=== PATIENT | female | born 1985 ===

== ENCOUNTER 2018-04-15 19:27 | Inpatient (IN) | payer BC ==
[2018-04-15] MEDS ORDERED: Sodium Chloride 0.9% 1,000 ML IV STA (21:11)
[2018-04-15] MEDS ORDERED: Sodium Chloride 0.9% 1,000 ML ONE (21:20)
[2018-04-15 21:24] LABS: BASO % 0.3 % (0.0-2.0); HEMOGLOBIN 12.6 g/dL (11.0-16.0); LYMPH # 0.8 K/uL (1.0-4.3); MEAN CELL VOLUME 86.1 fL (81.0-99.0); MEAN CORPUSCULAR HEMOGLOBIN 29.9 pg (27.0-31.0); MEAN CORPUSCULAR HGB CONC 34.7 g/dL (33.0-37.0); MEAN PLATELET VOLUME 8.8 fL (7.2-11.7); MONO # 0.8 K/uL (0.0-0.8); MONO % 8.6 % (0.0-10.0); NEUT # 7.2 K/uL (1.8-7.0); RBC 4.2 Mil/uL (3.80-5.20); RED CELL DISTRIBUTION WIDTH 13.3 % (11.5-14.5); WHITE BLOOD COUNT 8.8 K/uL (4.8-10.8)
[2018-04-15 21:30] LABS: NEUT % 81.1 % (50.0-75.0)
[2018-04-15 21:36] LABS: ALB/GLOB RATIO 1.4 (1.0-2.1); ALT/SGPT 45 U/L (9-52); AST/SGOT 37 U/L (14-36); BLOOD UREA NITROGEN 8 mg/dL (7-17); CALCIUM 8.4 mg/dl (8.6-10.4); GFR NON-AFRICAN AMERICAN > 60
[2018-04-15 22:12] LABS: SQUAMOUS EPITHIAL 3 /hpf (0-5); URINE BACTERIA FEW (<OCC); URINE BILIRUBIN NEGATIVE (NEGATIVE); URINE BLOOD 3+ (NEGATIVE); URINE CLARITY Hazy (Clear); URINE COLOR Yellow (YELLOW); URINE GLUCOSE (UA) NORMAL (Normal); URINE LEUKOCYTE ESTERASE TRACE Leu/uL (Negative); URINE PROTEIN 1+ mg/dL (NEGATIVE)
--- NOTE | 2018-04-15 22:28 | C.PDOC ---
History Of Present Illness 33 year old female presents to the ED c/o 4 day history of high grade fever, cough and body aches. Patient states she took one 200 mg Advil tablet at home without relief to her symptoms. Patient denies rash, headache, CP, SOB, nausea, vomit, diarrhea, recent travel, sick contacts. Time Seen by Provider: 04/15/18 19:39 Chief Complaint (Nursing): Flu-like Symptoms History Per: Patient History/Exam Limitations: no limitations Onset/Duration Of Symptoms: Days (4) Current Symptoms Are (Timing): Still Present Location Of Pain: Sinus/es, Diffuse Myalgias Associated Symptoms: Fever, Cough, Myalgias Ear Symptoms: Bilateral: None Recent travel outside of the [place]: No Additional History Per: Patient Past Medical History Reviewed: Historical Data, Nursing Documentation, Vital Signs Vital Signs: Last Vital Signs Temp 103 F H 04/15/18 21:01 Pulse 136 H 04/15/18 21:01 Resp 17 04/15/18 21:01 BP 134/82 04/15/18 21:01 Pulse Ox 96 04/15/18 21:01 - Medical History PMH: No Chronic Diseases Surgical History: Cholecystectomy Family History: States: Unknown Family Hx - Social History Hx Alcohol Use: No Hx Substance Use: No Review Of Systems Constitutional: Positive for: Fever, Malaise. Negative for: Chills ENT: Negative for: Nose Discharge, Nose Congestion Cardiovascular: Negative for: Chest Pain Respiratory: Positive for: Cough. Negative for: Shortness of Breath Gastrointestinal: Negative for: Nausea, Vomiting, Abdominal Pain Skin: Negative for: Rash Neurological: Negative for: Weakness, Numbness, Headache Physical Exam - Physical Exam Appears: Non-toxic, No Acute Distress, Other (febrile) Skin: Normal Color, Warm, Dry Head: Atraumatic, Normacephalic Eye(s): bilateral: Normal Inspection Neck: Normal ROM, Supple Chest: Symmetrical Cardiovascular: Rhythm Regular (tachycardic) Respiratory: Normal Breath Sounds, No Rales, No Rhonchi, No Wheezing Gastrointestinal/Abdominal: Soft, No Tenderness, No Guarding, No Rebound Extremity: Normal ROM, No Tenderness, No Swelling Neurological/Psych: Oriented x3, Normal Speech, Normal Cognition Gait: Steady ED Course And Treatment - Laboratory Results Result Diagrams: 04/15/18 21:21 04/15/18 21:21 Lab Results: Total Bilirubin 0.6 mg/dL (0.2-1.3) 04/15/18 21:21 AST 37 U/L (14-36) H 04/15/18 21:21 ALT 45 U/L (9-52) 04/15/18 21:21 Alkaline Phosphatase 62 U/L (38-126) 04/15/18 21:21 Total Protein 7.0 g/dL (6.3-8.3) 04/15/18 21:21 Albumin 4.0 g/dL (3.5-5.0) 04/15/18 21:21 Globulin 3.0 gm/dL (2.2-3.9) 04/15/18 21:21 Albumin/Globulin Ratio 1.4 (1.0-2.1) 04/15/18 21:21 Urine Color Yellow (YELLOW) 04/15/18 22:01 Urine Clarity Hazy (Clear) 04/15/18 22:01 Urine pH 7.0 (5.0-8.0) 04/15/18 22:01 Ur Specific [place] 1.010 (1.003-1.030) 04/15/18 22:01 Urine Protein 1+ mg/dL (NEGATIVE) H 04/15/18 22:01 Urine Glucose (UA) Normal mg/dL (Normal) 04/15/18 22:01 Urine Ketones 1+ mg/dL (NEGATIVE) H 04/15/18 22:01 Urine Blood 3+ (NEGATIVE) H 04/15/18 22:01 Urine Nitrate Negative (NEGATIVE) 04/15/18 22:01 Urine Bilirubin Negative (NEGATIVE) 04/15/18 22:01 Urine Urobilinogen 4.0 mg/dL (0.2-1.0) H 04/15/18 22:01 Ur Leukocyte Esterase Trace Nick/uL (Negative) 04/15/18 22:01 Urine WBC (Auto) 19 /hpf (0-5) H 04/15/18 22:01 Urine RBC (Auto) 112 /hpf (0-3) H 04/15/18 22:01 Ur Squamous Epith Cells 3 /hpf (0-5) 04/15/18 22:01 Urine Bacteria Few (<OCC) H 04/15/18 22:01 O2 Sat by Pulse Oximetry: 96 (ON RA) Pulse Ox Interpretation: Normal - Radiology CXR: Interpreted by Me, Viewed By Me CXR Interpretation: Yes: Infiltrates (questionable early infiltrate right lower lobe) Progress Note: Plan: - CXR. - Labs. - Motrin 600 mg PO. - IV fluids. - Tylenol 650 mg PO. - Blood culture. - Infleunza A B. - UA. Upon arrival patient was noted to be febrile and tachycardic, Tylenol was given. On re- evalution patient still remained febrile and tachycardic. Motrin and IV fluids were ordered. CXR showed possible early infiltrate antibiotics will be given to cover for pneumonia. After 2 L of Fluid, Tylenol and Ibuprofen patient still febrile. Rocephin and Zithromax ordered. Case was d/w who accepted patient to his service for observation and IV antibiotics. Disposition - Disposition Disposition: HOSPITALIZED Disposition Time: :31 Condition: STABLE - Clinical Impression Clinical Impression: Pneumonia - PA / REPAIR WELDER / Resident Statement MD/DO has reviewed & agrees with the documentation as recorded. - Scribe Statement The provider has reviewed the documentation as recorded by the Scribe Martin Sainz All medical record entries made by the Scribe were at my direction and persona lly dictated by me. I have reviewed the chart and agree that the record accurately reflects my personal performance of the history, physical exam, medical decision making, and the department course for this patient. I have also personally directed, reviewed, and agree with the discharge instructions and disposition. Decision To Admit - Pt Status Changed To: Hospital Disposition Of: Observation - . Bed Request Type: Regular Admitting Physician: Elizabeth Cannon Patient Diagnosis: Pneumonia
[2018-04-15 22:54] LABS: VENOUS BLOOD GAS BASE EXCESS -1.6 mmol/L (0.0-2.0); VENOUS BLOOD GAS PCO2 32 mmHg (40-60); VENOUS BLOOD GAS PO2 40 mm/Hg (30-55); VENOUS BLOOD PH 7.44 (7.32-7.43)
[2018-04-15] MEDS ORDERED: Sodium Chloride 0.9% 1,000 ML IV ONE (22:54)
[2018-04-15] MEDS ORDERED: Azithromycin 500mg/250ML NS 500 MG/250 ML BAG IV ONE (23:00)
[2018-04-15] MEDS ORDERED: Azithromycin 500mg/250ML NS 500 MG/250 ML BAG IVPB ONE (23:11)
[2018-04-16] MEDS: Azithromycin 500 MG in Sodium Chloride 0.9% 250 ML IVPB SCH (01:01)
[2018-04-16] MEDS: Dextrose 5%/0.45% NS 1,000 ML IV SCH ×3 (01:01→21:21)
[2018-04-16] MEDS: Albuterol-Ipratrop 3 mg / 0.5 (3 ml) UD INH SCH ×5 (07:45→23:57)
[2018-04-16] MEDS: cefTRIAXone IV 1 gm in Dextros 1 GM in Dextrose 5% In Water 50 ML IVPB SCH (10:03)
[2018-04-16] MEDS: Enoxaparin 40 mg Syringe SC SCH (10:03)
--- NOTE | 2018-04-16 12:09 | RAD ---
Date of service: 04/15/2018 HISTORY: cough COMPARISON: No prior. TECHNIQUE: Chest PA and lateral FINDINGS: LUNGS: No active pulmonary disease. PLEURA: No significant pleural effusion identified. No pneumothorax apparent. CARDIOVASCULAR: No aortic atherosclerotic calcification present. Normal cardiac size. No pulmonary vascular congestion. OSSEOUS STRUCTURES: No significant abnormalities. VISUALIZED UPPER ABDOMEN: Surgical clips right upper quadrant abdomen. OTHER FINDINGS: None. IMPRESSION: No acute cardiopulmonary disease appreciated.
[2018-04-16] MEDS: Oxycodone/Acetaminophen 5/325 mg Tab PO PRN (19:14)
--- NOTE | 2018-04-16 21:03 | CP.PCM.PCO ---
Physician Communication Note - Physician Communication Note Physician Communication Note: For Dr. Cannon
[2018-04-17] MEDS: Dextrose 5%/0.45% NS 1,000 ML IV SCH ×2 (00:07→06:44)
[2018-04-17] MEDS: Azithromycin 500 MG in Sodium Chloride 0.9% 250 ML IVPB SCH (01:23)
[2018-04-17 07:34] LABS: BASO % 0.3 % (0.0-2.0); EOS % 0.1 % (0.0-4.0); LYMPH # 1.3 K/uL (1.0-4.3); LYMPH % 16.9 % (20.0-40.0); MEAN CELL VOLUME 85.7 fL (81.0-99.0); MEAN CORPUSCULAR HEMOGLOBIN 30.7 pg (27.0-31.0); MEAN CORPUSCULAR HGB CONC 35.8 g/dL (33.0-37.0); MONO # 1.2 K/uL (0.0-0.8); MONO % 14.8 % (0.0-10.0); NEUT # 5.3 K/uL (1.8-7.0); NEUT % 67.9 % (50.0-75.0); RBC 3.57 Mil/uL (3.80-5.20); RED CELL DISTRIBUTION WIDTH 13.4 % (11.5-14.5); WHITE BLOOD COUNT 7.8 K/uL (4.8-10.8)
[2018-04-17 07:55] LABS: ALB/GLOB RATIO 1.2 (1.0-2.1); ALBUMIN 3.3 g/dL (3.5-5.0); ALT/SGPT 59 U/L (9-52); AST/SGOT 44 U/L (14-36); BLOOD UREA NITROGEN 3 mg/dL (7-17); CALCIUM 8.3 mg/dl (8.6-10.4); GFR NON-AFRICAN AMERICAN > 60
[2018-04-17] MEDS: Albuterol-Ipratrop 3 mg / 0.5 (3 ml) UD INH SCH ×4 (07:55→20:17)
[2018-04-17] MEDS ORDERED: Pneumococcal 23-Valent Vaccine IM ONE (10:00)
[2018-04-17] MEDS ORDERED: Influenza Vaccine 60 mcg/0.5 mL SYR (4YR UP) IM ONE (10:00)
[2018-04-17] MEDS: Enoxaparin 40 mg Syringe SC SCH (10:03)
[2018-04-17] MEDS: cefTRIAXone IV 1 gm in Dextros 1 GM in Dextrose 5% In Water 50 ML IVPB SCH (10:03)
--- NOTE | 2018-04-17 16:00 | CP.PCM.CON ---
History of Present Illness - History of Present Illness History of Present Illness: 33 year old female presents to the ED c/o 4 day history of high grade fever, cough and body aches. Patient states she took one 200 mg Advil tablet at home without relief to her symptoms. Patient denies rash, headache, CP, SOB, nausea, vomit, diarrhea, recent travel, sick contacts. Admitted to floors and refeerred for ID eval an antibiotic management is alert oriented without nucal rigidity - Medical History PMH: No Chronic Diseases Surgical History: Cholecystectomy Family History: States: Unknown Family Hx Review of Systems - Constitutional Constitutional: As Per HPI, Chills, Fever, Malaise - EENT Eyes: absent: As Per HPI, Blind Spots, Blurred Vision, Change in Vision, Decreased Night Vision, Diplopia, Discharge, Dry Eye, Exophthalmos, Floaters, Irritation, Itchy Eyes, Loss of Peripheral Vision, Pain, Photophobia, Requires C orrective Lenses, Sees Flashes, Spots in Vision, Tunnel Vision, Other Visual Disturbances, Loss of Vision, Other Ears: absent: As Per HPI, Decreased Hearing, Ear Discharge, Ear Pain, Tinnitus, Abnormal Hearing, Disequilibrium, Dizziness, Other Nose/Mouth/Throat: absent: As Per HPI, Epistaxis, Nasal Congestion, Nasal Discharge, Nasal Obstruction, Nasal Trauma, Nose Pain, Post Nasal Drip, Sinus Pain, Sinus Pressure, Bleeding Gums, Change in Voice, Dental Pain, Dry Mouth, Dysphagia, Halitosis, Hoarsness, Lip Swelling, Mouth Lesions, Mouth Pain, Od ynophagia, Sore Throat, Throat Swelling, Tongue Swelling, Facial Pain, Neck Pain, Neck Mass, Other - Breasts Breasts: absent: As Per HPI, Change in Shape, Mass, Pain, Nipple Discharge, Nipple Inversion, Skin Changes, Swelling, Other - Cardiovascular Cardiovascular: absent: As Per HPI, Acrocyanosis, Chest Pain, Chest Pain at Rest, Chest Pain with Activity, Claudication, Diaphoresis, Dyspnea, Dyspnea on Exertion, Edema, Irregular Heart Rhythm, Pain Radiating to Arm/Neck/Jaw, Leg Edema, Leg Ulcers, Lightheadedness, Orthopnea, Palpitations, Paroxysmal Nocturnal Dyspnea, Pedal Edema, Radiating Pain, Rapid Heart Rate, Slow Heart Rate, Syncope, Other - Respiratory Respiratory: absent: As Per HPI, Cough, Dyspnea, Hemoptysis, Dyspnea on Exertion, Wheezing, Snoring, Stridor, Pain on Inspiration, Chest Congestion, Excessive Mucous Production, Change in Mucous Color, Pain with Coughing, Other - Gastrointestinal Gastrointestinal: As Per HPI, Abdominal Pain - Genitourinary Genitourinary: absent: As Per HPI, Change in Urinary Stream, Difficulty Urinating, Dysuria, Flank Pain, Hematuria, Pyuria, Nocturia, Urinary Incontinence, Urinary Frequency, Urinary Hesitance, Urinary Urgency, Voiding Freq/Small Amts, Freq UTI, Hx Renal/Bladder Calculi, Hx /Renal Surgery, Bladder Distension, Other - Reproductive: Female Reproductive:Female: absent: As Per HPI, Amenorrhea, Amenorrhea/ Control, Currently Menstual, Cycle <21 Days, Cycle >35 Days, Cycle Variable, Menses 1-7 Days, Menses >/= 8 Days, Menses Variable, Cycle > 4 Weeks Between, No Menses for 6 Months, Heavy Menses, Light Menses, Normal Menses, Spotting Between Cycles, S/P Hysterectomy, Menopausal, Post Menopausal, Premenarche, Abnormal Vaginal Bleeding, Dysmenorrhea, Dyspareunia, Genital Lesions, Genital Pruritis, Pelvic Pain, Prolapse Symptoms, Sexual Dysfunction, Vaginal Discharge, Vaginal Dryness, Vaginal Odor, Vaginal Pruritis, Other - Menstruation Menstruation: absent: As Per HPI, Amenorrhea, Amenorrhea/ Control, Currently Menstual, Cycle <21 Days, Cycle >35 Days, Cycle Variable, Menses 1-7 Days, Menses >/= 8 Days, Menses Variable, Cycle > 4 Weeks Between, No Menses for 6 Months, Heavy Menses, Light Menses, Normal Menses, Spotting Between Cycles, S/P Hysterectomy, Menopausal, Post Menopausal, Premenarche, Abnormal Vaginal Bleeding, Dysmenorrhea, Other - Musculoskeletal Musculoskeletal: absent: As Per HPI, Abnormal Gait, Arthralgias, Atrophy, Back Pain, Deformity, Joint Swelling, Limited Range of Motion, Loss of Height, Muscle Cramps, Muscle Weakness, Myalgias, Neck Pain, Numbness, Radiating Pain into Limb, Stiffness, Tingling, Other - Integumentary Integumentary: absent: As Per HPI, Acne, Alopecia, Bleeding Lesions, Change in Hair, Change in Nails, Change in Pigmentation, Changing Lesions, Dry Skin, Erythema, Furuncle, Hirsutism, Lesions, New Lesions, Non-Healing Lesions, Photosensitivity, Pruritus, Rash, Skin Pain, Skin Ulcer, Sores, Striae, Swellin g, Unusual Bruising, Wounds, Jaundice, Other - Neurological Neurological: absent: As Per HPI, Abnormal Gait, Abnormal Hearing, Abnormal Movements, Abnormal Speech, Behavioral Changes, Burning Sensations, Confusion, Convulsions, Disequilibrium, Dizziness, Numbness, Focal Weakness, Frequent Falls, Headaches, Lack of Coordination, Loss of Vision, Memory Loss, Pa resthesias, Radicular Pain, Restless Legs, Sensory Deficit, Syncope, Tingling, Tremor, Vertigo, Weakness, Other Visual Disturbances, Other - Psychiatric Psychiatric: absent: As Per HPI, Abnormal Sleep Pattern, Anhedonia, Anxiety, Auditory Hallucinations, Behavioral Changes, Change in Appetite, Change in Libido, Confusion, Depression, Difficulty Concentrating, Hallucinations, Homicidal Ideation, Hopelessness, Irritability, Memory Loss, Mood Swings, Panic Attacks, Paranoia, Suicidal Ideation, Visual Hallucinations, Tactile Hallucinations, Other - Endocrine Endocrine: absent: As Per HPI, Change in Body Appearance, Change in Libido, Cold Intolorance, Deepening of Voice, Excessive Sweating, Fatigue, Flushing, Heat Int olorance, Increase in Ring/Shoe/Hat Size, Palpitations, Polydipsia, Polyphagia, Polyuria, Other - Hematologic/Lymphatic Hematologic: absent: As Per HPI, Easy Bleeding, Easy Bruising, Lymphadenopathy, Other Past Patient History - Past Medical History & Family History Past Medical History?: Yes - Past Social History Smoking Status: Never Smoked - CARDIAC Hx Cardiac Disorders: No - PULMONARY Hx Respiratory Disorders: No - NEUROLOGICAL Hx Neurological Disorder: No - HEENT Hx HEENT Problems: No - RENAL Hx Chronic Kidney Disease: No - ENDOCRINE/METABOLIC Hx Endocrine Disorders: No - HEMATOLOGICAL/ONCOLOGICAL Hx Blood Disorders: No - INTEGUMENTARY Hx Dermatological Problems: No - MUSCULOSKELETAL/RHEUMATOLOGICAL Hx Musculoskeletal Disorders: No Hx Falls: No - GASTROINTESTINAL Hx Gastrointestinal Disorders: No - GENITOURINARY/GYNECOLOGICAL Hx Genitourinary Disorders: No - PSYCHIATRIC Hx Psychophysiologic Disorder: No Hx Substance Use: No - SURGICAL HISTORY Hx Surgeries: Yes Hx Cholecystectomy: Yes - ANESTHESIA Hx Anesthesia: Yes Hx Anesthesia Reactions: No Hx Malignant Hyperthermia: No Has any member of the family had a problem w/ anesthesia?: No Meds Allergies/Adverse Reactions: Allergies Allergy/AdvReac Type Severity Reaction Status Date / Time No Known Allergies Allergy Verified 04/15/18 19:35 - Medications Medications: Current Medications Acetaminophen (Tylenol 325mg Tab) 650 mg PO Q4H PRN PRN Reason: Fever >100.4 F Last Admin: 04/16/18 16:06 Dose: 650 mg Albuterol/Ipratropium (Duoneb 3 Mg/0.5 Mg (3 Ml) Ud) 3 ml INH RQ4 [facility] Last Admin: 04/17/18 11:00 Dose: 3 ml Enoxaparin Sodium (Lovenox) 40 mg SC DAILY [facility]NI Last Admin: 04/17/18 10:03 Dose: 40 mg Azithromycin 500 mg/ Sodium (Chloride) 250 mls @ 250 mls/hr IVPB Q24H [facility]; Protocol Last Admin: 04/17/18 01:23 Dose: 250 mls/hr Ceftriaxone Sodium 1 gm/ (Dextrose) 100 mls @ 50 mls/30 min IVPB DAILY GIOVANNI; Protocol Last Admin: 04/17/18 10:03 Dose: 50 mls/30 min Dextrose/Sodium Chloride (Dextrose 5%/0.45% Ns 1000 Ml) 1,000 mls @ 100 mls/hr IV .Q10H [facility]NI Last Admin: 04/17/18 06:44 Dose: Not Given Ibuprofen (Motrin Tab) 400 mg PO Q6H [facility] Last Admin: 04/17/18 13:47 Dose: 400 mg Influenza Virus Vaccine (Flucelvax Quad 1360-1116 Syr) 60 mcg IM .ONCE ONE Stop: 04/18/18 10:01 Oxycodone/Acetaminophen (Percocet 5/325 Mg Tab) 1 tab PO Q4H PRN PRN Reason: Pain, severe (8-10) Stop: 04/19/18 19:02 Last Admin: 04/16/18 19:14 Dose: 1 tab Pantoprazole Sodium (Protonix Inj) 40 mg IVP DAILY [facility] Last Admin: 04/17/18 10:03 Dose: 40 mg Pneumococcal Polyvalent Vaccine (Pneumovax 23 Vaccine) 0.5 ml IM .ONCE ONE Stop: 04/18/18 10:01 Physical Exam - Constitutional Appears: Non-toxic, Chronically Ill - Head Exam Head Exam: NORMOCEPHALIC - Eye Exam Eye Exam: absent: Scleral icterus - ENT Exam ENT Exam: Normal External Ear Exam - Neck Exam Neck exam: Negative for: Lymphadenopathy - Respiratory Exam Respiratory Exam: Decreased Breath Sounds, Prolonged Expiratory Phase - Cardiovascular Exam Cardiovascular Exam: REGULAR RHYTHM, +S1, +S2 - GI/Abdominal Exam GI & Abdominal Exam: Diminished Bowel Sounds, Distended, Guarding, Soft. abse nt: Organomegaly, Rebound, Rigid, Tenderness - Rectal Exam Rectal Exam: Deferred - Exam Exam: NORMAL INSPECTION - Extremities Exam Extremities exam: Negative for: pedal edema - Back Exam Back exam: absent: CVA tenderness (L), CVA tenderness (R), paraspinal tenderness - Neurological Exam Neurological exam: Alert, CN II-XII Intact, Oriented x3, Reflexes Normal - Psychiatric Exam Psychiatric exam: Depressed - Skin Skin Exam: Dry Results - Vital Signs Recent Vital Signs: Last Vital Signs Temp 98.2 F 04/17/18 15:00 Pulse 82 04/17/18 15:00 Resp 20 04/17/18 15:00 BP 99/60 L 04/17/18 15:00 Pulse Ox 97 04/17/18 15:00 - Labs Result Diagrams: 04/17/18 07:19 04/17/18 07:19 Labs: Laboratory Results - last 24 hr 04/17/18 04/17/18 07:19 07:19 WBC 7.8 RBC 3.57 L Hgb 11.0 Hct 30.6 L MCV 85.7 MCH 30.7 MCHC 35.8 RDW 13.4 Plt Count 190 MPV 9.0 Neut % (Auto) 67.9 Lymph % (Auto) 16.9 L Ross % (Auto) 14.8 H Eos % (Auto) 0.1 Baso % (Auto) 0.3 Neut # (Auto) 5.3 Lymph # (Auto) 1.3 Ross # (Auto) 1.2 H Eos # (Auto) 0.0 Baso # (Auto) 0.0 Sodium 138 Potassium 3.2 L Chloride 106 Carbon Dioxide 25 Anion Gap 11 BUN 3 L Creatinine 0.4 L Est GFR ( Amer) > 60 Est GFR (Non-Af Amer) > 60 Random Glucose 142 H Calcium 8.3 L Total Bilirubin 0.4 AST 44 H ALT 59 H D Alkaline Phosphatase 56 Total Protein 6.1 L Albumin 3.3 L Globulin 2.8 Albumin/Globulin Ratio 1.2 Assessment & Plan (1) Pneumonia Status: Acute (2) Influenza-like illness Status: Acute (3) Pyelonephritis Status: Acute (4) UTI (urinary tract infection) Status: Acute - Assessment and Plan (Free Text) Assessment: acute febrile illness consid=stent with pyelonephritis iv rx in progress consider gu eval, imaging if not done
[2018-04-18] MEDS: Albuterol-Ipratrop 3 mg / 0.5 (3 ml) UD INH SCH ×6 (00:30→20:30)
[2018-04-18] MEDS: Azithromycin 500 MG in Sodium Chloride 0.9% 250 ML IVPB SCH (01:03)
[2018-04-18] MEDS: Dextrose 5%/0.45% NS 1,000 ML IV SCH ×3 (03:00→22:38)
--- NOTE | 2018-04-18 07:24 | CP.PCM.PN ---
Subjective - Date & Time of Evaluation Date of Evaluation: 04/18/18 Time of Evaluation: 07:24 - Subjective Subjective: Progress Note: Dr. Cannon's Service. 33 [facility] of a high fevers, cough and body aches for almost one week.Patient reports taking Advil for some relief in her symptoms, however they didn't improve. Patient denies any recent travel or sick contacts. Patient seen and examined at bedside. Per nursing no acute events occurred overnight. Patient reports feeling somewhat better today. At the time of the examination she denies any abdominal pain. Patient denies any chest pain, shortness of breath, fevers, chills, syncopal episode,s, or any other complaints. PMH: hypertension, diabetes, hyperlipidemia Allergies: Denies Surgical history: cholecystectomy PMD: Dr. Cannon Objective - Vital Signs/Intake and Output Vital Signs (last 24 hours): Temp Pulse Resp BP Pulse Ox 98.4 F 89 18 111/77 99 04/18/18 00:00 04/18/18 00:00 04/18/18 00:00 04/18/18 00:00 04/18/18 04:05 Intake and Output: 04/18/18 04/18/18 06:59 18:59 Intake Total 1900 Output Total 500 Balance 1400 - Medications Medications: Current Medications Acetaminophen (Tylenol 325mg Tab) 650 mg PO Q4H PRN PRN Reason: Fever >100.4 F Last Admin: 04/16/18 16:06 Dose: 650 mg Albuterol/Ipratropium (Duoneb 3 Mg/0.5 Mg (3 Ml) Ud) 3 ml INH RQ4 GIOVANNI Last Admin: 04/18/18 04:00 Dose: Not Given Enoxaparin Sodium (Lovenox) 40 mg SC DAILY GIOVANNI Last Admin: 04/17/18 10:03 Dose: 40 mg Azithromycin 500 mg/ Sodium (Chloride) 250 mls @ 250 mls/hr IVPB Q24H [facility]ANNI; Protocol Last Admin: 04/18/18 01:03 Dose: 250 mls/hr Ceftriaxone Sodium 1 gm/ (Dextrose) 100 mls @ 50 mls/30 min IVPB DAILY GIOVANNI; Protocol Last Admin: 04/17/18 10:03 Dose: 50 mls/30 min Dextrose/Sodium Chloride (Dextrose 5%/0.45% Ns 1000 Ml) 1,000 mls @ 100 mls/hr IV .Q10H [facility] Last Admin: 04/18/18 03:00 Dose: Not Given Ibuprofen (Motrin Tab) 400 mg PO Q6H [facility] Last Admin: 04/18/18 06:00 Dose: Not Given Influenza Virus Vaccine (Flucelvax Quad [id number] Syr) 60 mcg IM .ONCE ONE Stop: 04/18/18 10:01 Oxycodone/Acetaminophen (Percocet 5/325 Mg Tab) 1 tab PO Q4H PRN PRN Reason: Pain, severe (8-10) Stop: 04/19/18 19:02 Last Admin: 04/16/18 19:14 Dose: 1 tab Pantoprazole Sodium (Protonix Inj) 40 mg IVP DAILY [facility] Last Admin: 04/17/18 10:03 Dose: 40 mg Pneumococcal Polyvalent Vaccine (Pneumovax 23 Vaccine) 0.5 ml IM .ONCE ONE Stop: 04/18/18 10:01 - Labs Labs: 04/17/18 07:19 04/17/18 07:19 - Head Exam Head Exam: ATRAUMATIC, NORMAL INSPECTION - Eye Exam Eye Exam: EOMI, Normal appearance, PERRL Pupil Exam: NORMAL ACCOMODATION - ENT Exam ENT Exam: Mucous Membranes Moist. absent: Normal Oropharynx - Respiratory Exam Respiratory Exam: Clear to Ausculation Bilateral, NORMAL BREATHING PATTERN. absent: Prolonged Expiratory Phase, Respiratory Distress - Cardiovascular Exam Cardiovascular Exam: REGULAR RHYTHM, +S1, +S2 - GI/Abdominal Exam GI & Abdominal Exam: Soft, Normal Bowel Sounds. absent: Hyperactive Bowel Sounds - Back Exam Back Exam: NORMAL INSPECTION. absent: paraspinal tenderness - Neurological Exam Neurological Exam: Alert, Awake, CN II-XII Intact, Oriented x3 - Psychiatric Exam Psychiatric exam: Normal Affect, Normal Mood - Skin Skin Exam: Dry, Intact Assessment and Plan - Assessment and Plan (Free Text) Assessment: 33 year old female with a past medical history of hypertension, diabetes, and hyperlipidemia admitted for pneumonia. Plan: 1.Pneumonia CXR: questionable right lower lobe developing infiltrate Flu: negative Blood cx: negative x 48 hours Medications: Azithromycin 500mg IVPB Q24 [facility] Ceftriaxone 1gm IVPB Daily [facility] Ibuprofen 400mg PO Q6 [facility] Duoneb 3ml INH RQ4 [facility]AN[facility] 2. Transaminitis -AST :59 -ALT: 75 -Hepatitis panel negative -Abdominal ultrasound taken. :1. Increased echogenicity of the hepatic parenchymal cortex suggestive for fatty infiltration versus hepatic parenchymal disease. Clinical correlation. Prior cholecystectomy. Limited visualization of the pancreas. 3. Hypokalemia -Repleted -Monitor with serial cmp's and replete as needed. PPX -Lovenox -Protonix All management per Dr. Cannon. Fidel Beckett, PGY-2
[2018-04-18 07:33] LABS: BASO % 0.4 % (0.0-2.0); EOS # 0.1 K/uL (0.0-0.7); EOS % 0.7 % (0.0-4.0); LYMPH # 1.7 K/uL (1.0-4.3); LYMPH % 25.8 % (20.0-40.0); MEAN CELL VOLUME 85.8 fL (81.0-99.0); MEAN CORPUSCULAR HEMOGLOBIN 30.2 pg (27.0-31.0); MEAN CORPUSCULAR HGB CONC 35.2 g/dL (33.0-37.0); MONO # 0.5 K/uL (0.0-0.8); MONO % 8.1 % (0.0-10.0); NEUT # 4.4 K/uL (1.8-7.0); RBC 3.64 Mil/uL (3.80-5.20); WHITE BLOOD COUNT 6.7 K/uL (4.8-10.8)
[2018-04-18 07:34] LABS: HEPATITIS B SURFACE AG Negative (NEGATIVE)
[2018-04-18 07:39] LABS: HEPATITIS B CORE AB NEGATIVE (NEGATIVE)
[2018-04-18 07:47] LABS: ALB/GLOB RATIO 1.1 (1.0-2.1); ALBUMIN 3.2 g/dL (3.5-5.0); ALT/SGPT 75 U/L (9-52); AST/SGOT 59 U/L (14-36); BLOOD UREA NITROGEN 4 mg/dL (7-17); CALCIUM 8.4 mg/dl (8.6-10.4); GFR NON-AFRICAN AMERICAN > 60
[2018-04-18 07:52] LABS: HEPATITIS C ANTIBODY NEGATIVE (NEGATIVE)
[2018-04-18 07:56] VITALS: RESP 20
--- NOTE | 2018-04-18 08:33 | HP ---
HISTORY OF PRESENT ILLNESS: The patient is a 33-year-old female who presented to the hospital with chief complaint of fevers, ____ cough. The patient was found to have pneumonia. PHYSICAL EXAMINATION: GENERAL: The patient is awake, alert, and oriented. VITAL SIGNS: Temperature 100, pulse 90. HEENT: Within normal limits. NECK: Supple. CHEST: Symmetrical. HEART: Regular. ABDOMEN: Soft. EXTREMITIES: No edema. IMPRESSION AND PLAN: The patient suffers from pneumonia. The patient is to get bedrest. Supportive care. Elizabeth Cannon MD
[2018-04-18] MEDS: Pneumococcal 23-Valent Vaccine IM ONE ×2 (10:00→10:59)
[2018-04-18] MEDS ORDERED: Influenza Vaccine 60 mcg/0.5 mL SYR (4YR UP) IM ONE (10:00)
[2018-04-18] MEDS: Enoxaparin 40 mg Syringe SC SCH (10:01)
--- NOTE | 2018-04-18 10:13 | US ---
Abdominal ultrasound HISTORY: Abdominal pain. COMPARISON: None available. Technique: Real-time sonography was performed through the abdomen. Findings: Liver: 13.6 centimeters in length. Increased echogenicity of the hepatic parenchymal cortex suggestive for fatty infiltration versus hepatic parenchymal disease. Clinical correlation. Gallbladder: Prior cholecystectomy. Common bile duct measures 3.4 millimeters, within normal limits. Limited visualization of the pancreas. Prominent spleen measuring up to 12.5 centimeters. Visualized aorta and IVC are grossly preserved. Right kidney: 12.8 x 5.8 x 5.8 centimeters. No calculi or hydronephrosis. Left Kidney: 12.9 x 4.9 x 5.6 centimeters. No calculi or hydronephrosis. Impression: 1. Increased echogenicity of the hepatic parenchymal cortex suggestive for fatty infiltration versus hepatic parenchymal disease. Clinical correlation. 2. Prior cholecystectomy. 3. Limited visualization of the pancreas.
[2018-04-18 10:19] LABS: HEPATITIS A IGM NEGATIVE (NEGATIVE)
[2018-04-18] MEDS: cefTRIAXone IV 1 gm in Dextros 50 ML IVPB SCH (10:49)
--- NOTE | 2018-04-18 12:08 | CP.PCM.PN ---
Subjective - Date & Time of Evaluation Date of Evaluation: 04/18/18 Time of Evaluation: 08:00 - Subjective Subjective: c/o headache no fever alert / responsive Objective - Vital Signs/Intake and Output Vital Signs (last 24 hours): Temp Pulse Resp BP Pulse Ox 97.9 F 79 20 107/69 98 04/18/18 07:54 04/18/18 07:54 04/18/18 07:54 04/18/18 07:54 04/18/18 07:54 Intake and Output: 04/18/18 04/18/18 06:59 18:59 Intake Total 1900 Output Total 500 Balance 1400 - Medications Medications: Current Medications Acetaminophen (Tylenol 325mg Tab) 650 mg PO Q4H PRN PRN Reason: Fever >100.4 F Last Admin: 04/16/18 16:06 Dose: 650 mg Albuterol/Ipratropium (Duoneb 3 Mg/0.5 Mg (3 Ml) Ud) 3 ml INH RQ4 GIOVANNI Last Admin: 04/18/18 08:23 Dose: 3 ml Enoxaparin Sodium (Lovenox) 40 mg SC DAILY GIOVANNI Last Admin: 04/18/18 10:01 Dose: 40 mg Azithromycin 500 mg/ Sodium (Chloride) 250 mls @ 250 mls/hr IVPB Q24H GIOVANNI; Protocol Last Admin: 04/18/18 01:03 Dose: 250 mls/hr Dextrose/Sodium Chloride (Dextrose 5%/0.45% Ns 1000 Ml) 1,000 mls @ 100 mls/hr IV .Q10H GIOVANNI Last Admin: 04/18/18 03:00 Dose: Not Given Ceftriaxone Sodium (Rocephin Iv 1 Gm Duplex) 50 mls @ 50 mls/30 min IVPB DAILY GIOVANNI; Protocol Last Admin: 04/18/18 10:49 Dose: 50 mls/30 min Ibuprofen (Motrin Tab) 400 mg PO Q6H GIOVANNI Last Admin: 04/18/18 12:04 Dose: 400 mg Oxycodone/Acetaminophen (Percocet 5/325 Mg Tab) 1 tab PO Q4H PRN PRN Reason: Pain, severe (8-10) Stop: 04/19/18 19:02 Last Admin: 04/16/18 19:14 Dose: 1 tab Pantoprazole Sodium (Protonix Inj) 40 mg IVP DAILY GIOVANNI Last Admin: 04/18/18 09:59 Dose: 40 mg Pneumococcal Polyvalent Vaccine (Pneumovax 23 Vaccine) 0.5 ml IM .ONCE ONE Stop: 04/19/18 10:01 - Labs Labs: 04/18/18 06:43 04/18/18 06:43 - Constitutional Appears: Non-toxic, Chronically Ill - Head Exam Head Exam: NORMOCEPHALIC - Eye Exam Eye Exam: absent: Scleral icterus - ENT Exam ENT Exam: Mucous Membranes Dry - Neck Exam Neck Exam: absent: Lymphadenopathy - Respiratory Exam Respiratory Exam: Decreased Breath Sounds - Cardiovascular Exam Cardiovascular Exam: REGULAR RHYTHM - GI/Abdominal Exam GI & Abdominal Exam: Distended - Rectal Exam Rectal Exam: Deferred - Exam Exam: NORMAL INSPECTION - Extremities Exam Extremities Exam: absent: Pedal Edema - Back Exam Back Exam: absent: CVA tenderness (L), CVA tenderness (R) - Neurological Exam Neurological Exam: Alert, Awake, Oriented x3 - Psychiatric Exam Psychiatric exam: Normal Mood - Skin Skin Exam: Dry Assessment and Plan (1) Pneumonia Status: Acute (2) Influenza-like illness Status: Acute (3) Pyelonephritis Status: Acute (4) UTI (urinary tract infection) Status: Acute - Assessment and Plan (Free Text) Assessment: iv rx in progress consider imaging, neuro eval
[2018-04-18] MEDS: Oxycodone/Acetaminophen 5/325 mg Tab PO PRN (15:02)
[2018-04-18] MEDS ORDERED: Potassium Chloride 20 mEq/15 ml LIQ UD PO ONE (16:00)
--- NOTE | 2018-04-18 16:52 | CT ---
Date of service: 04/18/2018 PROCEDURE: CT HEAD WITHOUT CONTRAST. HISTORY: acute severe headache COMPARISON: None available. TECHNIQUE: Axial computed tomography images were obtained through the head/brain without intravenous contrast. Radiation dose: Total exam DLP = 902.75 mGy-cm. This CT exam was performed using one or more of the following dose reduction techniques: Automated exposure control, adjustment of the mA and/or kV according to patient size, and/or use of iterative reconstruction technique. FINDINGS: HEMORRHAGE: No intracranial hemorrhage. BRAIN: No mass effect or edema. No atrophy or chronic microvascular ischemic changes.Please note that MRI with diffusion imaging is more sensitive in the detection of acute ischemic event. VENTRICLES: No hydrocephalus. CALVARIUM: Unremarkable. PARANASAL SINUSES: Unremarkable as visualized. No significant inflammatory changes. MASTOID AIR CELLS: Unremarkable as visualized. No inflammatory changes. OTHER FINDINGS: None. IMPRESSION: No acute intracranial pathology identified.
[2018-04-19] MEDS: Azithromycin 500 MG in Sodium Chloride 0.9% 250 ML IVPB SCH (00:58)
[2018-04-19] MEDS: Albuterol-Ipratrop 3 mg / 0.5 (3 ml) UD INH SCH ×4 (01:31→13:20)
[2018-04-19] MEDS: Dextrose 5%/0.45% NS 1,000 ML IV SCH ×2 (07:10→09:21)
[2018-04-19] MEDS: Enoxaparin 40 mg Syringe SC SCH (09:36)
[2018-04-19] MEDS: cefTRIAXone IV 1 gm in Dextros 50 ML IVPB SCH (09:43)
[2018-04-19] MEDS ORDERED: Pneumococcal 23-Valent Vaccine IM ONE (10:00)
[2018-04-19] MEDS ORDERED: Pantoprazole 40 mg EC Tab PO SCH (10:00)
[2018-04-19 11:18] LABS: BASO % 0.4 % (0.0-2.0); EOS # 0.1 K/uL (0.0-0.7); HEMOGLOBIN 11.2 g/dL (11.0-16.0); LYMPH # 1.6 K/uL (1.0-4.3); LYMPH % 25.3 % (20.0-40.0); MEAN CORPUSCULAR HEMOGLOBIN 30.9 pg (27.0-31.0); MEAN CORPUSCULAR HGB CONC 35.5 g/dL (33.0-37.0); MEAN PLATELET VOLUME 8.7 fL (7.2-11.7); MONO # 0.5 K/uL (0.0-0.8); MONO % 7.4 % (0.0-10.0); NEUT % 64.9 % (50.0-75.0); RBC 3.63 Mil/uL (3.80-5.20); RED CELL DISTRIBUTION WIDTH 13.9 % (11.5-14.5); WHITE BLOOD COUNT 6.2 K/uL (4.8-10.8)
--- NOTE | 2018-04-19 11:20 | CP.PCM.PN ---
Subjective - Date & Time of Evaluation Date of Evaluation: 04/19/18 Time of Evaluation: 11:20 - Subjective Subjective: Progress note. Attending: Dr. Cannon. Pt seen and examined at bedside. No acute distress. No events overnight. ID following. Objective - Vital Signs/Intake and Output Vital Signs (last 24 hours): Temp Pulse Resp BP Pulse Ox 97.8 F 92 H 20 112/70 97 04/19/18 07:56 04/19/18 07:56 04/19/18 07:56 04/19/18 07:56 04/19/18 07:56 Intake and Output: 04/19/18 04/19/18 06:59 18:59 Intake Total 2049 Balance 2049 - Medications Medications: Current Medications Acetaminophen (Tylenol 325mg Tab) 650 mg PO Q4H PRN PRN Reason: Fever >100.4 F Last Admin: 04/16/18 16:06 Dose: 650 mg Albuterol/Ipratropium (Duoneb 3 Mg/0.5 Mg (3 Ml) Ud) 3 ml INH RQ4 GIOVANNI Last Admin: 04/19/18 07:25 Dose: 3 ml Enoxaparin Sodium (Lovenox) 40 mg SC DAILY GIOVANNI Last Admin: 04/19/18 09:36 Dose: 40 mg Azithromycin 500 mg/ Sodium (Chloride) 250 mls @ 250 mls/hr IVPB Q24H GIOVANNI; Protocol Last Admin: 04/19/18 00:58 Dose: 250 mls/hr Dextrose/Sodium Chloride (Dextrose 5%/0.45% Ns 1000 Ml) 1,000 mls @ 100 mls/hr IV .Q10H GIOVANNI Last Admin: 04/19/18 09:21 Dose: Not Given Ceftriaxone Sodium (Rocephin Iv 1 Gm Duplex) 50 mls @ 50 mls/30 min IVPB DAILY GIOVANNI; Protocol Last Admin: 04/19/18 09:43 Dose: 50 mls/30 min Ibuprofen (Motrin Tab) 400 mg PO Q6H GIOVANNI Last Admin: 04/19/18 06:00 Dose: Not Given Oxycodone/Acetaminophen (Percocet 5/325 Mg Tab) 1 tab PO Q4H PRN PRN Reason: Pain, severe (8-10) Stop: 04/19/18 19:02 Last Admin: 02/11/19 15:02 Dose: 1 tab Pantoprazole Sodium (Protonix Ec Tab) 40 mg PO DAILY GIOVANNI Last Admin: 04/19/18 09:35 Dose: 40 mg - Labs Labs: 04/18/18 06:43 04/18/18 06:43 - Constitutional Appears: Non-toxic, No Acute Distress - Head Exam Head Exam: ATRAUMATIC, NORMAL INSPECTION, NORMOCEPHALIC - Eye Exam Eye Exam: EOMI - ENT Exam ENT Exam: Mucous Membranes Moist - Respiratory Exam Respiratory Exam: Clear to Ausculation Bilateral, NORMAL BREATHING PATTERN. absent: Respiratory Distress - Cardiovascular Exam Cardiovascular Exam: +S1, +S2 - GI/Abdominal Exam GI & Abdominal Exam: Soft, Normal Bowel Sounds. absent: Tenderness - Extremities Exam Extremities Exam: Full ROM, Normal Inspection - Back Exam Back Exam: NORMAL INSPECTION - Neurological Exam Neurological Exam: Alert, Awake, Oriented x3 - Psychiatric Exam Psychiatric exam: Normal Affect, Normal Mood - Skin Skin Exam: Dry, Intact, Normal Color, Warm Assessment and Plan - Assessment and Plan (Free Text) Assessment: This is a 33 yo female with 1. Community acquired pneumonia CXR: questionable right lower lobe developing infiltrate Flu: negative Blood cx: negative x 48 hours Medications: Azithromycin 500mg IVPB Q24 GIOVANNI Ceftriaxone 1gm IVPB Daily GIOVANNI Ibuprofen 400mg PO Q6 GIOVANNI Duoneb 3ml INH RQ4 GIOVANNI 2. Transaminitis -AST :59 -ALT: 75 -Hepatitis panel negative -Abdominal ultrasound taken. :1. Increased echogenicity of the hepatic parenchymal cortex suggestive for fatty infiltration versus hepatic parenchymal disease. Clinical correlation. Prior cholecystectomy. Limited visualization of the pancreas. 3. Hypokalemia -Repleted -Monitor with serial cmp's and replete as needed. PPX -Lovenox daily -Protonix daily Dispo: likely will discharge today on abx, pending ID approval. All management per Dr. Cannon.
[2018-04-19 11:40] LABS: ALB/GLOB RATIO 1.2 (1.0-2.1); ALBUMIN 3.5 g/dL (3.5-5.0); ALT/SGPT 95 U/L (9-52); AST/SGOT 75 U/L (14-36); BLOOD UREA NITROGEN 4 mg/dL (7-17); CALCIUM 8.6 mg/dl (8.6-10.4); GFR NON-AFRICAN AMERICAN > 60
[2018-04-19 16:22] VITALS: BP 111/74; PULSE 69; TEMP 97.9; O2SAT 94
--- NOTE | 2018-04-19 16:55 | CP.PCM.PN ---
Subjective - Date & Time of Evaluation Date of Evaluation: 04/19/18 Time of Evaluation: 08:00 - Subjective Subjective: improving denies fever or headache NAD Objective - Vital Signs/Intake and Output Vital Signs (last 24 hours): Temp Pulse Resp BP Pulse Ox 97.9 F 69 20 111/74 94 L 04/19/18 16:00 04/19/18 16:00 04/19/18 16:00 04/19/18 16:00 04/19/18 16:00 Intake and Output: 04/19/18 04/19/18 06:59 18:59 Intake Total 2049 800 Balance 2049 800 - Medications Medications: Current Medications Acetaminophen (Tylenol 325mg Tab) 650 mg PO Q4H PRN PRN Reason: Fever >100.4 F Last Admin: 04/16/18 16:06 Dose: 650 mg Albuterol/Ipratropium (Duoneb 3 Mg/0.5 Mg (3 Ml) Ud) 3 ml INH RQ4 GIOVANNI Last Admin: 04/19/18 13:20 Dose: 3 ml Enoxaparin Sodium (Lovenox) 40 mg SC DAILY GIOVANNI Last Admin: 04/19/18 09:36 Dose: 40 mg Azithromycin 500 mg/ Sodium (Chloride) 250 mls @ 250 mls/hr IVPB Q24H GIOVANNI; Protocol Last Admin: 04/19/18 00:58 Dose: 250 mls/hr Dextrose/Sodium Chloride (Dextrose 5%/0.45% Ns 1000 Ml) 1,000 mls @ 100 mls/hr IV .Q10H GIOVANNI Last Admin: 04/19/18 09:21 Dose: Not Given Ceftriaxone Sodium (Rocephin Iv 1 Gm Duplex) 50 mls @ 50 mls/30 min IVPB DAILY GIOVANNI; Protocol Last Admin: 04/19/18 09:43 Dose: 50 mls/30 min Ibuprofen (Motrin Tab) 400 mg PO Q6H GIOVANNI Last Admin: 04/19/18 11:27 Dose: Not Given Oxycodone/Acetaminophen (Percocet 5/325 Mg Tab) 1 tab PO Q4H PRN PRN Reason: Pain, severe (8-10) Stop: 04/19/18 19:02 Last Admin: 04/18/18 15:02 Dose: 1 tab Pantoprazole Sodium (Protonix Ec Tab) 40 mg PO DAILY GIOVANNI Last Admin: 04/19/18 09:35 Dose: 40 mg - Labs Labs: 04/19/18 11:08 04/19/18 11:08 - Constitutional Appears: Non-toxic, Chronically Ill - Head Exam Head Exam: NORMOCEPHALIC - Eye Exam Eye Exam: absent: Scleral icterus - ENT Exam ENT Exam: Mucous Membranes Dry - Neck Exam Neck Exam: absent: Lymphadenopathy - Respiratory Exam Respiratory Exam: Decreased Breath Sounds - Cardiovascular Exam Cardiovascular Exam: REGULAR RHYTHM - GI/Abdominal Exam GI & Abdominal Exam: Distended, Soft - Rectal Exam Rectal Exam: Deferred - Exam Exam: NORMAL INSPECTION - Extremities Exam Extremities Exam: absent: Pedal Edema - Back Exam Back Exam: absent: CVA tenderness (L), CVA tenderness (R) Assessment and Plan (1) Pneumonia Status: Acute (2) Influenza-like illness Status: Acute (3) Pyelonephritis Status: Acute (4) UTI (urinary tract infection) Status: Acute - Assessment and Plan (Free Text) Assessment: d/c home oral antibiotics
== END 2018-04-19 20:21 | disposition home or self-care (01) | DRG 194 ==
LOC: C.ER 19:27 → C.9E 04-16 00:49 → OBSVTOIN 04-16 00:49 → INTOOBSV 04-16 00:49 → C.3T 04-16 01:35
PROVIDERS: ADMIT Internal Medicine Pulmonary Disease; ATTEND Internal Medicine Pulmonary Disease
DX: J11.00 Influenza due to unidentified influenza virus with unspecified type of pneumonia (principal); N12 Tubulo-interstitial nephritis, not specified as acute or chronic; E11.9 Type 2 diabetes mellitus without complications; E78.5 Hyperlipidemia, unspecified; I10 Essential (primary) hypertension